=== PATIENT | male | born 1970 | race Caucasian/White ===

== ENCOUNTER 2018-02-03 15:56 | Emergency (ER) | payer OTHER ==
[2018-02-02] MEDS: SODIUM CHLOR 0.9% 1000 ML INJ 1,000 ML IV SCH (19:45)
[~2018-02-03] VITALS: Ht 175.3 cm; Wt 81.5 kg
[2018-02-03] MEDS ORDERED: IOHEXOL 350 MG/ML 10 ML VIAL (for RAD DIAG) IVCONTRAST ONE (15:57)
[2018-02-03 16:00] VITALS: BP 132/73; PULSE 107; RESP 18; TEMP 98.2; O2SAT 99
[2018-02-03] MEDS ORDERED: KETOROLAC TROMETHAMINE 30 MG/ML (IVP) VIAL IV PUSH ONE (18:30)
[2018-02-03] MEDS ORDERED: SODIUM CHLORIDE 0.9% FLUSH 10 ML FLUSH IV FLUSH PRN (18:30)
[2018-02-03] MEDS ORDERED: MORPHINE SULFATE 4 MG/ML INJ IV PUSH ONE (18:30)
--- NOTE | 2018-02-03 19:16 | PD ---
HPI Chief Complaint: Abdominal Pain Time Seen by Provider: 18:15 Travel History International Travel<30 days: No Contact w/Intl Traveler<30days: No Traveled to known affect area: No History of Present Illness HPI 47-year-old male presents emergency department with ongoing right upper quadrant pain, nausea, with history of gallstones and cirrhosis. Patient has not been seen in this facility prior to this visit. Patient states history of cirrhosis from alcohol abuse for which she has been sober for from the last 90 days. He reports that he is on lactulose for chronic elevated ammonia levels. Patient states he is not on a transplant list. His chief complaint is ongoing worsening right upper quadrant pain and decreased ability to eat secondary to it. He denies diarrhea or changes in his stool. Patient has had nausea and occasional vomiting. He denies changes in his urine. He states his pain is 10 out of 10. Patient is allergic to penicillin [facility] Social History Alcohol Use: Yes Tobacco Use: No Substance Use: No Allergies-Medications (Allergen,Severity, Reaction): Coded Allergies: Penicillins (Verified Allergy, Severe, 02/03/18) Review of Systems Except as stated in HPI: all other systems reviewed are Neg General / Constitutional: No: Fever Eyes: No: Visual changes HENT: No: Headaches Cardiovascular: No: Chest Pain or Discomfort Respiratory: No: Shortness of Breath Gastrointestinal: Positive: Nausea, Vomiting, Abdominal Pain, Other (Ascites) Genitourinary: No: Dysuria Musculoskeletal: No: Pain Skin: No Rash Neurologic: No: Weakness Psychiatric: No: Depression Endocrine: No: Polydipsia Hematologic/Lymphatic: No: Easy Bruising Physical Exam Narrative GENERAL: Patient appears in mild distress per SKIN: Warm and dry. Patient appears mildly jaundiced. Normal turgor HEAD: Atraumatic. Normocephalic. EYES: Pupils equal and round. No significant scleral icterus. No injection or drainage. ENT: No nasal bleeding or discharge. Mucous membranes pink and moist. Pharynx is clear. Airways patent. NECK: Trachea midline. No JVD. Supple nontender. CARDIOVASCULAR: Regular rate and rhythm. No murmurs gallops or rubs RESPIRATORY: No accessory muscle use. Clear to auscultation. Breath sounds equal bilaterally. GASTROINTESTINAL: Abdomen soft, moderate right upper quadrant tenderness. Patient has mild to moderate distention consistent with ascites. Hepatic and splenic margins not palpable. No CVA tenderness MUSCULOSKELETAL: Extremities without clubbing, cyanosis, or edema. No obvious deformities. NEUROLOGICAL: Awake and alert. No obvious cranial nerve deficits. Motor grossly within normal limits. Five out of 5 muscle strength in the arms and legs. Normal speech. PSYCHIATRIC: Appropriate mood and affect; insight and judgment normal. Data Data Last Documented VS Vital Signs Date Time Temp Pulse Resp B/P (MAP) Pulse Ox O2 Delivery O2 Flow Rate FiO2 02/03/18 16:00 98.2 107 18 132/73 (92) 99 Orders Orders Complete Blood Count With Diff (02/03/18 18:21) Comprehensive Metabolic Panel (02/03/18 18:21) Lipase (02/03/18 18:21) Prothrombin Time / Inr (Pt) (02/03/18 18:21) Act Partial Throm Time (Ptt) (02/03/18 18:21) Urinalysis - C+S If Indicated (02/03/18 18:21) Ct Abd/Pel W Iv Contrast(Rout) (02/03/18 18:21) Us Abdomen Gallbladder (02/03/18 ) Iv Access Insert/Monitor (02/03/18 18:21) Ecg Monitoring (02/03/18 18:21) Oximetry (02/03/18 18:21) Morphine Inj (Morphine Inj) (02/03/18 18:30) Sodium Chlor 0.9% 1000 Ml Inj (Ns 1000 M (02/03/18 18:21) Sodium Chloride 0.9% Flush (Ns Flush) (02/03/18 18:30) Electrocardiogram (02/03/18 18:21) Ketorolac Inj (Toradol Inj) (02/03/18 18:30) Ammonia (02/03/18 18:58) MDM Medical Decision Making Medical Screen Exam Complete: Yes Emergency Medical Condition: Yes Differential Diagnosis Abdominal pain. History of cirrhosis. Gallbladder disease. Ascites. Narrative Course Patient is medically stable at time of exam. Labs ordered including CBC, CMP, ammonia level, coagulation studies, lipase, and urinalysis. IV access is obtained the patient is given ketorolac 30 mg 2 mg morphine IV, and Zofran 4 mg IV. Patient is given 1000 mL normal saline bolus . CT of the abdomen with IV contrast as well as ultrasound of the gallbladder is ordered. 1900 hrs. care of the patient is turned over to [facility] nurse practitioner for final disposition. Condition: Stable Russell Jiang Feb 03, 2018 19:16
[2018-02-03 19:25] LABS: BILIRUBIN, URINE NEG (NEG); BLOOD, URINE NEG (NEG); GLUCOSE,URINE NEG (NEG); HYALINE CAST, URINE 10 /lpf (RARE); KETONE, URINE NEG (NEG); MUCUS URINE MOD /lpf (OCC); NITRITE,URINE NEG (NEG); PH, URINE 5.5 (5.0-8.5); SQUAMOUS EPITHELIAL CELL URINE <1 /hpf (0-5); URINE COLOR DARK-YELLOW (YELLW/STRAW); URINE LEUKOCYTE ESTERASE NEG (NEG)
[2018-02-03 19:30] LABS: AUTOMATED NEUTROPHIL # 8.1 TH/MM3 (1.8-7.7); BASOPHIL % 0.4 % (0.0-2.0); EOSINOPHIL # 0.2 TH/MM3 (0-0.4); EOSINOPHIL % 1.8 % (0.0-4.0); HEMATOCRIT 37.9 % (39.0-51.0); HEMOGLOBIN 12.7 GM/DL (13.0-17.0); LYMPH % 20.9 % (9.0-44.0); LYMPHOCYTE # 2.4 TH/MM3 (1.0-4.8); MEAN CELL VOLUME 95.5 FL (80.0-100.0); MEAN CORPUSCULAR HEMOGLOBIN 31.9 PG (27.0-34.0); MEAN CORPUSCULAR HGB CONC 33.4 % (32.0-36.0); MEAN PLATELET VOLUME 7.3 FL (7.0-11.0); MONO % 6.7 % (0.0-8.0); MONOCYTE # 0.8 TH/MM3 (0-0.9); NEUT % 70.2 % (16.0-70.0); PLATELET COUNT 350 TH/MM3 (150-450); RED BLOOD COUNT 3.97 MIL/MM3 (4.50-5.90); RED CELL DISTRIBUTION WIDTH 14.2 % (11.6-17.2); WHITE BLOOD COUNT 11.5 TH/MM3 (4.0-11.0)
[2018-02-03 19:36] LABS: INTERNATIONAL NORMALIZED RATIO 1.4 RATIO; PROTHROMBIN TIME - PATIENT 14.2 SEC (9.8-11.6)
[2018-02-03 19:45] VITALS: BP 142/82; PULSE 90; RESP 15; O2SAT 98
[2018-02-03 19:45] LABS: ALBUMIN 2.9 GM/DL (3.4-5.0); AST (GOT) 48 U/L (15-37); BICARBONATE 25.5 MEQ/L (21.0-32.0); BLOOD UREA NITROGEN 4 MG/DL (7-18); CHLORIDE 107 MEQ/L (98-107); CREATININE 1.08 MG/DL (0.60-1.30); GLOMERULAR FILTRATION RATE 73 ML/MIN (>89); GLUCOSE,RANDOM 116 MG/DL (74-106); SODIUM (NA) 143 MEQ/L (136-145)
[2018-02-03] MEDS: SODIUM CHLOR 0.9% 1000 ML INJ 1,000 ML IV SCH (19:45)
[2018-02-03 19:47] LABS: ALT (GPT) 24 U/L (12-78)
[2018-02-03 19:48] LABS: ALKALINE PHOSPHATASE 162 U/L (45-117); TOTAL BILIRUBIN ADULT 1.5 MG/DL (0.2-1.0)
--- NOTE | 2018-02-03 20:01 | RADRPT ---
EXAM DATE/TIME: 02/03/2018 19:14 [facility] COMPARISON: No previous studies available for comparison. INDICATIONS : RUQ pain. MEDICAL HISTORY : Alcohol use. SURGICAL HISTORY : None. ENCOUNTER: Initial ACUITY: 1 day PAIN SCORE: 9/10 LOCATION: Right upper quadrant MEASUREMENTS: LIVER: 23.0 cm length COMMON DUCT: 6 mm RIGHT KIDNEY: 11.0 x 5.3 x 5.0 cm FINDINGS: LIVER: Normal echotexture without focal lesion or ductal dilatation. COMMON DUCT: No intraluminal mass or stone visualized. GALLBLADDER: Gallbladder is decompressed which can accentuate the gallbladder wall. However, the gallbladder wall is prominent measuring up to 6 mm. No gallstones, pericholecystic fluid or sonographic Pat sign. PANCREAS: The visualized portions are within normal limits. RIGHT KIDNEY: No evidence of hydronephrosis, stone, or mass. CONCLUSION: 1. Decompressed gallbladder which can accentuate the gallbladder wall. However, there is gallbladder wall prominence without gallstones or sonographic evidence for acute cholecystitis. Findings are like ly chronic in etiology and may be seen in the setting of chronic hepatic dysfunction. HIDA scan may b e performed to evaluate for cystic duct patency if there is continued significant clinical concern re garding acute cholecystitis. Erick Kinsey MD on February 03, 2018 at 19:56 Board Certified Radiologist. This report was verified electronically.
[2018-02-03 20:37] VITALS: BP 144/86; PULSE 90; RESP 16; O2SAT 100
--- NOTE | 2018-02-03 20:39 | RADRPT ---
EXAM DATE/TIME: 02/03/2018 20:15 [facility] COMPARISON: No previous studies available for comparison. INDICATIONS : Right upper qaudrant pain. History of Cirrhosis. IV CONTRAST: 95 cc Omnipaque 350 (iohexol) IV ORAL CONTRAST: No oral contrast ingested. RADIATION DOSE: 15.30 CTDIvol (mGy) MEDICAL HISTORY : Cirrhosis. SURGICAL HISTORY : None. ENCOUNTER: Initial ACUITY: 1 day PAIN SCALE: 10/10 LOCATION: Right upper quadrant TECHNIQUE: Volumetric scanning of the abdomen and pelvis was performed. Using automated exposure control and ad justment of the mA and/or kV according to patient size, radiation dose was kept as low as reasonably achievable to obtain optimal diagnostic quality images. DICOM format image data is available electro nically for review and comparison. FINDINGS: LOWER LUNGS: Focal atelectasis at the right lung base. LIVER: Diffusely decreased hepatic attenuation with enlarged liver measuring up to 22 cm. Gallbladder is dec ompressed. SPLEEN: Normal size without lesion. PANCREAS: Within normal limits. KIDNEYS: Normal in size and shape. There is no mass, stone or hydronephrosis. ADRENAL GLANDS: Within normal limits. VASCULAR: There is no aortic aneurysm. BOWEL/MESENTERY: The stomach, small bowel, and colon demonstrate no acute abnormality. Mild colonic diverticulosis. Ap pendix is visualized and normal in appearance. There is no free intraperitoneal air or fluid. ABDOMINAL WALL: Within normal limits. RETROPERITONEUM: There is no lymphadenopathy. BLADDER: No wall thickening or mass. REPRODUCTIVE: Within normal limits. INGUINAL: There is no lymphadenopathy or hernia. MUSCULOSKELETAL: Within normal limits for patient age. CONCLUSION: 1. Diffusely decreased hepatic attenuation with hepatomegaly consistent with hepatitis versus hepatic steatosis versus medical liver disease. 2. Normal appendix. 3. Mild scattered colonic diverticulosis. 4. Otherwise, no acute abnormality in the abdomen or pelvis. Ercik Kinsey MD on February 03, 2018 at 20:32 Board Certified Radiologist. This report was verified electronically.
[2018-02-03] MEDS ORDERED: OXYC-392 PO (20:40)
[2018-02-03] MEDS ORDERED: LACT10SO PO (20:40)
--- NOTE | 2018-02-03 20:56 | PD ---
Physical Exam Time Seen by Provider: 20:54 Narrative Please refer to previous providers documentation for details regarding the patient's current visit. Data Data Last Documented VS Vital Signs Date Time Temp Pulse Resp B/P (MAP) Pulse Ox O2 Delivery O2 Flow Rate FiO2 02/03/18 21:25 89 16 133/72 (92) 100 02/03/18 20:37 Room Air 02/03/18 16:00 98.2 Orders Orders Complete Blood Count With Diff (02/03/18 18:21) Comprehensive Metabolic Panel (02/03/18 18:21) Lipase (02/03/18 18:21) Prothrombin Time / Inr (Pt) (02/03/18 18:21) Act Partial Throm Time (Ptt) (02/03/18 18:21) Urinalysis - C+S If Indicated (02/03/18 18:21) Ct Abd/Pel W Iv Contrast(Rout) (02/03/18 18:21) Us Abdomen Gallbladder (02/03/18 ) Iv Access Insert/Monitor (02/03/18 18:21) Ecg Monitoring (02/03/18 18:21) Oximetry (02/03/18 18:21) Morphine Inj (Morphine Inj) (02/03/18 18:30) Sodium Chlor 0.9% 1000 Ml Inj (Ns 1000 M (02/03/18 18:21) Sodium Chloride 0.9% Flush (Ns Flush) (02/03/18 18:30) Electrocardiogram (02/03/18 18:21) Ketorolac Inj (Toradol Inj) (02/03/18 18:30) Ammonia (02/03/18 18:58) Iohexol 350 Inj (Omnipaque 350 Inj) (02/03/18 15:57) Ed Discharge Order (02/03/18 20:53) Labs Laboratory Tests Test 02/03/18 18:15 02/03/18 18:55 02/03/18 19:50 White Blood Count 11.5 TH/MM3 Red Blood Count 3.97 MIL/MM3 Hemoglobin 12.7 GM/DL Hematocrit 37.9 % Mean Corpuscular Volume 95.5 FL Mean Corpuscular Hemoglobin 31.9 PG Mean Corpuscular Hemoglobin Concent 33.4 % Red Cell Distribution Width 14.2 % Platelet Count 350 TH/MM3 Mean Platelet Volume 7.3 FL Neutrophils (%) (Auto) 70.2 % Lymphocytes (%) (Auto) 20.9 % Monocytes (%) (Auto) 6.7 % Eosinophils (%) (Auto) 1.8 % Basophils (%) (Auto) 0.4 % Neutrophils # (Auto) 8.1 TH/MM3 Lymphocytes # (Auto) 2.4 TH/MM3 Monocytes # (Auto) 0.8 TH/MM3 Eosinophils # (Auto) 0.2 TH/MM3 Basophils # (Auto) 0.0 TH/MM3 CBC Comment DIFF FINAL Differential Comment Prothrombin Time 14.2 SEC Prothromb Time International Ratio 1.4 RATIO Activated Partial Thromboplast Time 30.6 SEC Blood Urea Nitrogen 4 MG/DL Creatinine 1.08 MG/DL Random Glucose 116 MG/DL Total Protein 8.0 GM/DL Albumin 2.9 GM/DL Calcium Level 9.0 MG/DL Alkaline Phosphatase 162 U/L Aspartate Amino Transf (AST/SGOT) 48 U/L Alanine Aminotransferase (ALT/SGPT) 24 U/L Total Bilirubin 1.5 MG/DL Sodium Level 143 MEQ/L Potassium Level 4.0 MEQ/L Chloride Level 107 MEQ/L Carbon Dioxide Level 25.5 MEQ/L Anion Gap 11 MEQ/L Estimat Glomerular Filtration Rate 73 ML/MIN Lipase 110 U/L Urine Color DARK-YELLOW Urine Turbidity CLEAR Urine pH 5.5 Urine Specific [place] 1.016 Urine Protein TRACE mg/dL Urine Glucose (UA) NEG mg/dL Urine Ketones NEG mg/dL Urine Occult Blood NEG Urine Nitrite NEG Urine Bilirubin NEG Urine Urobilinogen 2.0 MG/DL Urine Leukocyte Esterase NEG Urine RBC 1 /hpf Urine WBC 2 /hpf Urine Squamous Epithelial Cells <1 /hpf Urine Hyaline Casts 10 /lpf Urine Mucus MOD /lpf Microscopic Urinalysis Comment CULT NOT INDICATED Ammonia 39 MCMOL/L [facility] Medical Record Reviewed: Yes Supervised Visit with MICHELLE: No Narrative Course Patient was signed out to me with lab work and imaging studies pending. Laboratory Tests Test 02/03/18 18:15 02/03/18 18:55 02/03/18 19:50 White Blood Count 11.5 TH/MM3 Red Blood Count 3.97 MIL/MM3 Hemoglobin 12.7 GM/DL Hematocrit 37.9 % Mean Corpuscular Volume 95.5 FL Mean Corpuscular Hemoglobin 31.9 PG Mean Corpuscular Hemoglobin Concent 33.4 % Red Cell Distribution Width 14.2 % Platelet Count 350 TH/MM3 Mean Platelet Volume 7.3 FL Neutrophils (%) (Auto) 70.2 % Lymphocytes (%) (Auto) 20.9 % Monocytes (%) (Auto) 6.7 % Eosinophils (%) (Auto) 1.8 % Basophils (%) (Auto) 0.4 % Neutrophils # (Auto) 8.1 TH/MM3 Lymphocytes # (Auto) 2.4 TH/MM3 Monocytes # (Auto) 0.8 TH/MM3 Eosinophils # (Auto) 0.2 TH/MM3 Basophils # (Auto) 0.0 TH/MM3 CBC Comment DIFF FINAL Differential Comment Prothrombin Time 14.2 SEC Prothromb Time International Ratio 1.4 RATIO Activated Partial Thromboplast Time 30.6 SEC Blood Urea Nitrogen 4 MG/DL Creatinine 1.08 MG/DL Random Glucose 116 MG/DL Total Protein 8.0 GM/DL Albumin 2.9 GM/DL Calcium Level 9.0 MG/DL Alkaline Phosphatase 162 U/L Aspartate Amino Transf (AST/SGOT) 48 U/L Alanine Aminotransferase (ALT/SGPT) 24 U/L Total Bilirubin 1.5 MG/DL Sodium Level 143 MEQ/L Potassium Level 4.0 MEQ/L Chloride Level 107 MEQ/L Carbon Dioxide Level 25.5 MEQ/L Anion Gap 11 MEQ/L Estimat Glomerular Filtration Rate 73 ML/MIN Lipase 110 U/L Urine Color DARK-YELLOW Urine Turbidity CLEAR Urine pH 5.5 Urine Specific [place] 1.016 Urine Protein TRACE mg/dL Urine Glucose (UA) NEG mg/dL Urine Ketones NEG mg/dL Urine Occult Blood NEG Urine Nitrite NEG Urine Bilirubin NEG Urine Urobilinogen 2.0 MG/DL Urine Leukocyte Esterase NEG Urine RBC 1 /hpf Urine WBC 2 /hpf Urine Squamous Epithelial Cells <1 /hpf Urine Hyaline Casts 10 /lpf Urine Mucus MOD /lpf Microscopic Urinalysis Comment CULT NOT INDICATED Ammonia 39 MCMOL/L Last Impressions Abdomen/Pelvis CT 02/03/18 1821 Signed Impressions: Service Date/Time: Saturday, February 03, 2018 20:15 - CONCLUSION: 1. Diffusely decreased hepatic attenuation with hepatomegaly consistent with hepatitis versus hepatic steatosis versus medical liver disease. 2. Normal appendix. 3. Mild scattered colonic diverticulosis. 4. Otherwise, no acute abnormality in the abdomen or pelvis. Erick Kinsey MD Gall Bladder Ultrasound 02/03/18 0000 Signed Impressions: Service Date/Time: Saturday, February 03, 2018 19:14 - CONCLUSION: 1. Decompressed gallbladder which can accentuate the gallbladder wall. However, there is gallbladder wall prominence without gallstones or sonographic evidence for acute cholecystitis. Findings are likely chronic in etiology and may be seen in the setting of chronic hepatic dysfunction. HIDA scan may be performed to evaluate for cystic duct patency if there is continued significant clinical concern regarding acute cholecystitis. Erick Kinsey MD Findings are reviewed and discussed with my attending. Patient will be discharged home at this time. He already has scheduled outpatient follow-up and is encouraged to keep these appointments. He agrees to return immediately with acute worsening symptoms. Diagnosis Primary Impression: Abdominal pain Qualified Codes: R10.11 - Right upper quadrant pain Additional Impression: Liver disease Referrals: Primary Care Physician Patient Instructions: Abdominal Pain (ED), General Instructions Additional Instruction: Follow-up with a primary care provider Keep appointments with all physicians for follow-up Continue pain control as already prescribed Return immediately with acute worsening symptoms Med/Other Pt SpecificInfo: No Change to Meds Disposition: 01 DISCHARGE HOME Condition: Stable Diana Virgen ALBER Feb 03, 2018 20:56
[2018-02-03 21:25] VITALS: BP 133/72
--- NOTE | 2018-02-04 21:10 | EKG ---
Date Performed: 02/03/2018 Time Performed: 20:34:41 PTAGE: 47 years EKG: Sinus rhythm NONSPECIFIC T-WAVE ABNORMALITY BORDERLINE ECG NO PREVIOUS TRACING DOCTOR: Uche Chandler Interpretating Date/Time 02/04/2018 21:09:03
== END 2018-02-03 21:27 | disposition home or self-care (01) ==
LOC: NEPD 15:56
DX: R10.11 Right upper quadrant pain (principal); K70.30 Alcoholic cirrhosis of liver without ascites; R94.31 Abnormal electrocardiogram [ECG] [EKG]
CPT/HCPCS: 74177; 76705; 80053; 81001; 82140; 83690; 85025; 85610; 85730; 93005; 96361; 96374; 99285; J1885; J2270; J7030; Q9967